=== PATIENT | female | born 1990 | race Caucasian/White ===

== ENCOUNTER 2021-01-17 12:26 | Inpatient (IN) | payer OTHER, SELFPAY ==
[2021-01-17] VITALS (10 sets, daily range): BP systolic 98–113; BP diastolic 63–77; PULSE 74–133; RESP 16–33; TEMP 36.9–37.3; O2SAT 87–100; BMI 18.2; BMI 18.1
--- NOTE | 2021-01-17 12:37 | EKG12_ITS ---
Test Reason : SYNCOPE Blood Pressure : / mmHG Vent. Rate : 083 BPM Atrial Rate : 083 BPM P-R Int : 192 ms QRS Dur : 098 ms QT Int : 400 ms P-R-T Axes : 079 000 060 degrees QTc Int : 470 ms Normal sinus rhythm Normal ECG Confirmed by EDWIN GARZA, PETEY ([id number]), story editor KAJAL CAMPBELL ([id number]) on 01/19/2021 2:21:28 PM Referred By: TL Confirmed By:PETEY PINEDA MD
--- NOTE | 2021-01-17 12:37 | CT_ITS ---
HISTORY: Syncope. TECHNIQUE: Multiple axial images were obtained of the brain without intravenous contrast. A radiation dose optimization technique was used for this scan. # of images incl. paperwork: 232. COMPARISON: None. FINDINGS: BRAIN PARENCHYMA: No significant attenuation abnormality in the brain parenchyma. INTRACRANIAL HEMORRHAGE: No acute intracranial hemorrhage. CSF SPACES/MASS EFFECT: Cerebral ventricles, cortical sulci, and other extra-axial CSF spaces appropriate for age without significant midline shift or mass effect. CALVARIUM: Intact. PARANASAL SINUSES/MASTOID AIR CELLS: Clear. CT/Brain/Head without Contrast IMPRESSION: No acute intracranial process identified. Individualized dose optimization techniques were used for this CT. at 1331 Reported and signed by: Idalmis Luna MD Electronically Signed: Idalmis Luna MD at 13:30 EDT Tel , Service support ,
--- NOTE | 2021-01-17 12:39 | ED.RN ---
NO OLD EKGS
[2021-01-17] MEDS: 0.9% Normal Saline 1,000 ML 1000 ML IV ×2 (12:49→13:59)
[2021-01-17] MEDS: LORazepam 2 MG/ML Syringe 1 MG IV (12:50)
--- NOTE | 2021-01-17 12:50 | NURSING ---
NO OLD EKGS
--- NOTE | 2021-01-17 12:50 | ED.RN ---
PT WAS GETTING AN EKG DONE, THIS RN WAS AT THE COMPUTER DOCUMENTING IN THE ROOM. PT YELLED OUT, TENSED UP AND STARTED TO SEIZE. THIS RN CALLED FOR HELP AND DR PUENTES AT BEDSIDE. SEIZURE LASTED APPROX 2 MINUTES. VERBAL ORDER FOR ATIVAN GIVEN.
[2021-01-17] MEDS: levETIRAcetam IV 1,000 MG/100 ML BAG 400 MG IV (13:06)
[2021-01-17 13:07] LABS: Absolute Lymphocyte Count 1.73 X10^3/uL (0.83-4.51); Absolute Neutrophil Count 3.4 X10^3/uL (2.0-7.7); Basophil# 0.05 X10^3/uL; Basophil% 0.9 % (0-1); Eosinophil# 0.12 X10^3/uL; Eosinophils% 2.1 % (0-5); Hematocrit 36.7 % (37-47); Hemoglobin 11.8 g/dL (12.0-15.0); Lymphocyte # 1.73 X10^3/ul (0.83-4.51); Lymphocyte % 29.7 % (19-41); Mean Corp Hgb Conc 32.2 g/dL (32-36); Mean Corpuscular Hgb 28.8 pg (27.0-32.0); Mean Corpuscular Volume 89.5 fL (81-99); Mean Platelet Vol. 8.9 fl (6.2-12.0); Monocyte% 8.6 % (0-10); NRBC Flagged by Analyzer 0 % (0-5); Neutrophil # 3.39 X10^3/uL (2.7-7.7); Neutrophil % 58.2 % (47-70); Platelet Count 283 K/mm3 (150-450); RBC Distribution Width SD 39.7 fl (35.1-43.9); White Blood Count 5.8 K/mm3 (4.4-11.0)
[2021-01-17 13:19] LABS: Anion Gap 8 (5-15); BUN 10 mg/dL (7-18); BUN/Creat Ratio 16.3 RATIO (10-20); Calcium,Total 7.9 mg/dL (8.5-10.1); Chloride 107 mmol/L (98-107); Creatinine, Serum 0.62 mg/dL (0.55-1.02); EST Glomerular Filtration Rate 121 mL/min (>60); Est Glom Filt Rate - Afr Amer 146 mL/min (>60); Estimated Creatinine Clearance 107.24 ml/min; Glucose 88 mg/dL (74-106); Potassium 3.8 mmol/L (3.5-5.1); Sodium Level 139 mmol/L (136-145); Troponin-I HS 3.5 pg/mL (3.0-53.7)
--- NOTE | 2021-01-17 13:19 | RAD_ITS ---
HISTORY: Syncope. TECHNIQUE: XR Chest 1 View. # of images incl. paperwork: 1. COMPARISON: None. FINDINGS: CARDIOMEDIASTINAL STRUCTURES: Cardiac silhouette not enlarged. Mediastinal contour unremarkable. LUNGS: Radiographically clear. PLEURA: No pleural effusion or pneumothorax. OSSEOUS STRUCTURES: Unremarkable. RAD/Chest 1 View (Portable) IMPRESSION: No radiographic evidence of acute cardiopulmonary disease. at 1349 Reported and signed by: Idalmis Luna MD Electronically Signed: Idalmis Luna MD at 13:48 EDT Tel , Service support ,
--- NOTE | 2021-01-17 13:21 | EX.ED.DYSGE1 ---
HPI History of Present Illness Chief Complaint: Alt LOC Narrative Narrative: Patient presenting for evaluation secondary to altered level of consciousness. History was obtained through the patient's as well as the patient herself. Apparently the patient was fixing dinner, went outside to go to the ice box and had an episode where she lost consciousness. Patient states that she does not remember any sort of preceding event, denies any chest pain shortness of breath lightheadedness or palpitations. Patient simply woke up on the ground. states that he was present by her side after maybe about 2 minutes of her being outside, and denied that she had any sort of shaking type episodes but was somewhat difficult to arouse. Patient was brought immediately to the emergency department. There is no personal or family history of cardiac disease sudden cardiac or heart arrhythmias. 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 PFSH PFSH Home Medications NK 01/17/21 [History Last Taken Unknown] Allergy/AdvReac Type Severity Reaction Status Date / Time No Known Allergies Allergy Verified 01/17/21 12:37 Social History Smoking Status: Never smoker ROS ROS ED Constitutional Constitutional ED: Reports other Details: Altered LOC ENT ENT ED: Denies rhinorrhea Cardiovascular Cardiovascular: Denies chest pain Respiratory/Chest Respiratory/Chest: Denies cough or dyspnea Gastrointestinal Gastrointestinal: Denies abdominal pain, diarrhea, nausea or vomiting Genitourinary Genitourinary ED: Denies dysuria or hematuria Musculoskeletal Musculoskeletal: Denies back pain Integumentary Denies rash Neurologic Neurologic: Denies paresthesias or weakness Psychiatric Psychiatric: Denies depression Endocrine Endocrinology: Denies fatigue Allergic/Immunologic Allergic/Immunologic ED: Denies urticaria EXAM Physical Exam Const Vital Signs: 01/17/21 12:27 01/17/21 12:37 01/17/21 12:52 Temperature 98.4 F Temperature Source Oral Pulse Rate 74 133 H Respiratory Rate 16 33 H Respiratory Effort Normal Non-Labored Respiratory Pattern Normal Blood Pressure 110/68 106/69 Blood Pressure Mean 82 81 Pulse Ox 100 87 Oxygen Delivery Method Room Air Room Air 01/17/21 12:55 01/17/21 13:00 Temperature Temperature Source Pulse Rate 94 102 H Respiratory Rate 19 H 17 Respiratory Effort Respiratory Pattern Blood Pressure 103/63 110/68 Blood Pressure Mean 76 82 Pulse Ox 97 98 Oxygen Delivery Method Room Air Room Air Positive well nourished and well developed Constitutional Narrative: Thin [place] female with a very flat affect no acute distress General Appearance ED: well developed and NAD HEENT Reports moist mucous membranes HEENT Narrative: No evidence of tongue biting Negative for trauma or tenderness Eyes EOMs intact bilaterally Neck no lymphadenopathy, supple and no JVD Chest Wall inspection of chest normal Resp normal respiratory effort and clear to auscultation bilaterally Cardio regular rate, regular rhythm, no murmurs and peripheral pulses 2+ throughout GI normal to inspection, nondistended, normoactive bowel sounds, non-tender and no masses Palpation: soft Back/Spine normal to inspection Extremity normal to inspection General Extremety ED: Negative for tenderness Neuro oriented x3 and no sensory deficits noted Sensorium / Orientation: alert Motor Exam: strength 5/5 throughout Psych mental status grossly normal Skin no rashes or lesions noted MDM MDM MDM Narrative Medical decision making narrative: Patient presented secondary to an undifferentiated altered mental status. Work-up was initiated, shortly after initiating the patient's work-up the patient had a full body tonic-clonic seizure with a postictal episode. Patient was given a milligram of Ativan and was loaded with 1000 mg of Keppra. Repeat evaluation of the patient at 1315 shows her to have continued postictal lethargy but she arouses to voice and is responsive and will follow commands. Patient had continued improvement of her mental status on multiple repeat evaluations she did not have any evidence of electrolyte derangements her lactic acid was elevated consistent with her seizure. Chest x-ray by my personal review shows no pathology. Patient remained stable, I believe she requires admission. I discussed this with hospitalist. Lab Data Labs: Laboratory Results - last 24 hr 01/17/21 01/17/21 01/17/21 12:45 12:45 12:45 WBC 5.8 RBC 4.10 L Hgb 11.8 L Hct 36.7 L MCV 89.5 MCH 28.8 MCHC 32.2 RDW Std Deviation 39.7 RDW Coeff of Thai 12.0 Plt Count 283 MPV 8.9 Immature Gran % (Auto) 0.500 Neut % (Auto) 58.2 Lymph % (Auto) 29.7 [place] % (Auto) 8.6 Eos % (Auto) 2.1 Baso % (Auto) 0.9 Absolute Neuts (auto) 3.4 Absolute Lymphs (auto) 1.73 Nucleated RBC % 0 Sodium 139 Potassium 3.8 Chloride 107 Carbon Dioxide 24.0 Anion Gap 8 BUN 10 Creatinine 0.62 Estim Creat Clear Calc 107.24 Est GFR (MDRD) Af Amer 146 Est GFR (MDRD) Non-Af 121 BUN/Creatinine Ratio 16.3 Glucose 88 Lactic Acid Calcium 7.9 L Troponin I High Sens 3.5 Serum , Qual NEGATIVE 01/17/21 13:08 WBC RBC Hgb Hct MCV MCH MCHC RDW Std Deviation RDW Coeff of Thai Plt Count MPV Immature Gran % (Auto) Neut % (Auto) Lymph % (Auto) [place] % (Auto) Eos % (Auto) Baso % (Auto) Absolute Neuts (auto) Absolute Lymphs (auto) Nucleated RBC % Sodium Potassium Chloride Carbon Dioxide Anion Gap BUN Creatinine Estim Creat Clear Calc Est GFR (MDRD) Af Amer Est GFR (MDRD) Non-Af BUN/Creatinine Ratio Glucose Lactic Acid 7.3 H* Calcium Troponin I High Sens Serum , Qual Radiography Chest X-Ray - ED: 1 View, Read by ED Physician and Normal Diagnostic Testing: Radiology Impression Brain CT 01/17/21 12:37 IMPRESSION: No acute intracranial process identified. Individualized dose optimization techniques were used for this CT. at 1331 Reported and signed by: Idalmis Luna MD Electronically Signed: Idalmis Luna MD at 13:30 EDT Tel , Service support , Chest X-Ray 01/17/21 13:19 IMPRESSION: No radiographic evidence of acute cardiopulmonary disease. at 1349 Reported and signed by: Idalmis Luna MD Electronically Signed: Idalmis Luna MD at 13:48 EDT Tel , Service support , EKG Initial EKG: Attestation: I personally reviewed and interpreted this EKG as follows: (Sinus rhythm of [address] segments normal T waves normal OK and QTc intervals no evidence of WPW or Brugada morphology.) Critical Care Time Critical care time (excluding procedures): 30-74 minutes, Discussing w/Patient &/or Family/Foster Parent, Discussing w/Consultants, Arranging Admission or Transfer and Performing Direct Patient Care at Bedside Discharge Plan Triage Chief Complaint: Alt LOC ED Provider: Faisal Morataya Dx/Rx/DC Orders Clinical Impression: Seizure Prescriptions: No Action NK RF: 0 Primary Care Provider: Keith Madison Referrals: Keith Madison DO [Primary Care Provider] - Disposition Disposition: Acute Care [facility]
[2021-01-17 13:25] LABS: Internal QC Validated? YES +Cl - CLEAR BKGD; Pregnancy, Serum, hCG Quali. NEGATIVE Negative
[2021-01-17 13:42] LABS: Lactic Acid 7.3 mmol/L (0.4-1.9)
--- NOTE | 2021-01-17 14:02 | NURSING ---
DR BOYD FOR DR MARK
--- NOTE | 2021-01-17 14:03 | NURSING ---
PCU OBS SEIZURE TERELETSKY
--- NOTE | 2021-01-17 14:22 | PCM.HP.STD ---
Documented by User: Lindy Christensen NP, EARLY INTERVENTION SPECIALIST-C 01/17/21 14:31 HPI - General General Date of Admission: 01/17/21 Date of Service: 01/17/21 Chief Complaint: Seizure HPI Narrative MANJIT RIOS, is a 30 F who presents to the Emergency Room due to seizure. at bedside states he found patient on the ground today and she was difficult to arouse. states after a few minutes patient regained consciousness. He denies any seizure activity however thinks he found her at the tail end of it. He did witness an additional seizure in the emergency room. Patient reports a history of absence seizures as a child and states she has not had any recurrent seizures for the past 10 to 15 years. She does not follow with neurology. She denies any recent illness, fever, new medications. She states she has been getting less sleep lately. Otherwise, denies recent atypical symptoms. She denies other past medical history. [facility] Medical History (Updated 01/17/21 @ 14:26 by Lindy Christensen NP, EARLY INTERVENTION SPECIALIST-C) Seizure Home Medications NK 01/17/21 [History Last Taken Unknown] Allergy/AdvReac Type Severity Reaction Status Date / Time No Known Allergies Allergy Verified 01/17/21 12:37 other (Denies known paternal and maternal medical history including cardiac history.) Surgical History (Updated 01/17/21 @ 14:27 by Lindy Christensen NP, EARLY INTERVENTION SPECIALIST-C) Previous section Social History (Updated 01/17/21 @ 14:27 by Lindy Christensen NP, EARLY INTERVENTION SPECIALIST-C) household members: significant other and children Smoking Status: Never smoker alcohol intake: never substance use type: does not use ROS Constitutional Constitutional: Reports fatigue; Denies change in weight, chills, fever(s) or weakness Cardiovascular Cardiovascular: Denies chest pain, edema, lightheadedness, palpitations or syncope Respiratory/Chest Respiratory/Chest: Denies cough, dyspnea, productive cough, shortness of breath at rest, shortness of breath with exertion or wheezing Gastrointestinal Gastrointestinal: Denies abdominal pain, constipation, diarrhea, nausea or vomiting Genitourinary Genitourinary: Denies burning urination, difficulty urinating, dysuria, hematuria, urinary frequency, urinary incontinence or urinary urgency Musculoskeletal Musculoskeletal: Denies back pain, joint pain or muscle weakness Integumentary Integumentary: Denies erythema, lesions, rash or wounds Neurologic Neurologic: Reports seizure-like activity; Denies abnormal speech, confusion, dizziness, focal weakness, numbness, paresthesias or syncope Psychiatric Psychiatric: Denies anxiety or depression Hematologic/Lymphatic Hematologic/Lymphatic: Denies anemia, easy bleeding or easy bruising Allergic/Immunologic Allergic/Immunologic: Denies hives or asthma Vital Signs Vital Signs Vital Signs: 01/17/21 12:27 01/17/21 12:37 01/17/21 12:52 Temperature 98.4 F Temperature Source Oral Pulse Rate 74 133 H Respiratory Rate 16 33 H Respiratory Effort Normal Non-Labored Respiratory Pattern Normal Blood Pressure 110/68 106/69 Blood Pressure Mean 82 81 Pulse Ox 100 87 Oxygen Delivery Method Room Air Room Air 01/17/21 12:55 01/17/21 13:00 01/17/21 14:00 Temperature 98.4 F Temperature Source Oral Pulse Rate 94 102 H 88 Respiratory Rate 19 H 17 24 H Respiratory Effort Respiratory Pattern Blood Pressure 103/63 110/68 113/76 Blood Pressure Mean 76 82 88 Pulse Ox 97 98 99 Oxygen Delivery Method Room Air Room Air Room Air Weight Weight: 112 lb 14.027 oz Body Mass Index (BMI) 18.2 Physical Exam Const alert, oriented x3 and no apparent distress Orientation / Consciousness: awake, oriented to person, oriented to place and oriented to time HEENT normocephalic and moist oral mucous membranes Eyes PERRL, EOMs intact bilaterally and conjunctivae normal Neck no lymphadenopathy Resp normal respiratory effort and clear to auscultation bilaterally Cardio regular rate, regular rhythm and no murmurs Peripheral Pulses: pulses 2+ throughout GI normal to inspection, nondistended, normoactive bowel sounds, non-tender and non-distended Extremity normal to inspection Skin no rashes or lesions noted Lesions: no lesions Rashes: no rashes Trauma: no lacerations or abrasions Neuro CN's II-XII intact bilaterally, no focal motor deficits, no sensory deficits noted and deep tendon reflexes 2+ bilaterally Psych mental status grossly normal and affect normal Results Lab / Micro Data Result Diagrams: 01/17/21 12:45 01/17/21 12:45 Labs: Laboratory Results - last 24 hr 01/17/21 12:45: WBC 5.8, RBC 4.10 L, Hgb 11.8 L, Hct 36.7 L, MCV 89.5, MCH 28.8, MCHC 32.2, RDW Std Deviation 39.7, RDW Coeff of Thai 12.0, Plt Count 283, MPV 8.9, Immature Gran % (Auto) 0.500, Neut % (Auto) 58.2, Lymph % (Auto) 29.7, [place] % (Auto) 8.6, Eos % (Auto) 2.1, Baso % (Auto) 0.9, Absolute Neuts (auto) 3.4, Absolute Lymphs (auto) 1.73, Nucleated RBC % 0 01/17/21 12:45: Sodium 139, Potassium 3.8, Chloride 107, Carbon Dioxide 24.0, Anion Gap 8, BUN 10, Creatinine 0.62, Estim Creat Clear Calc 107.24, Est GFR (MDRD) Af Amer 146, Est GFR (MDRD) Non-Af 121, BUN/Creatinine Ratio 16.3, Glucose 88, Calcium 7.9 L, Troponin I High Sens 3.5 01/17/21 12:45: Serum , Qual NEGATIVE 01/17/21 13:08: Lactic Acid 7.3 H* Radiology Impression Brain CT 01/17/21 12:37 IMPRESSION: No acute intracranial process identified. Individualized dose optimization techniques were used for this CT. at 1331 Reported and signed by: Idalmis Luna MD Electronically Signed: Idalmis Luna MD at 13:30 EDT Tel , Service support , Chest X-Ray 01/17/21 13:19 IMPRESSION: No radiographic evidence of acute cardiopulmonary disease. at 1349 Reported and signed by: Idalmis Luna MD Electronically Signed: Idalmis Luna MD at 13:48 EDT Tel , Service support , Assessment & Plan Assessment/Plan (1) Seizure: PLAN: 1. Acute seizure-IV Keppra, as needed IV Ativan. Seizure precautions. Obtain EEG. Obtain SOC neurology consult. Lab work unremarkable with the exception of elevated lactic acid. 2. Lactic acidosis-secondary to above. DVT prophylaxis-low risk, not indicated This patient was seen by Lindy Christensen NP-C under the supervision of Dr. Mccullough. Documented by User: Dr. Michel Mccullough, 01/17/21 17:05 HPI - General General Date of Admission: 01/17/21 [facility] Medical History (Updated 01/17/21 @ 14:26 by Lindy Christensen NP, EARLY INTERVENTION SPECIALIST-C) Seizure Home Medications NK 01/17/21 [History Last Taken Unknown] Allergy/AdvReac Type Severity Reaction Status Date / Time No Known Allergies Allergy Verified 01/17/21 12:37 Surgical History (Updated 01/17/21 @ 14:27 by Lindy Christensen NP, EARLY INTERVENTION SPECIALIST-C) Previous section Social History (Updated 01/17/21 @ 14:27 by Lindy Christensen NP, EARLY INTERVENTION SPECIALIST-C) household members: significant other and children Smoking Status: Never smoker alcohol intake: never substance use type: does not use Results Lab / Micro Data Result Diagrams: 01/17/21 12:45 01/17/21 12:45 Charges/Coding Addendum Addendum: Patient was seen and examined independently of Lindy Christensen today, she came to the ER after being found outside her home by her and her mental status was not correct, she appeared lethargic and somnolent. Patient was brought into the ER shortly after arrival in the ER, ER staff witnessed the patient having a tonic-clonic seizure. Patient had a past history of seizure disorder and was taken off of seizure medications approximately 7 years ago. According to the patient, her last history of seizure was approximately 15 years ago. On examination she appeared in good health and spirits, she does not appear to be in any distress. Vital signs as documented. Skin warm and dry and without overt rashes. Neck without JVD, thyroid appears normal, trachea is midline, neck is supple. Lungs clear, normal air movement was noted. Heart exam notable for regular rhythm, normal sounds and absence of murmurs, rubs or gallops. Abdomen unremarkable and without evidence of organomegaly, masses, or abdominal aortic enlargement, bowel sounds are present in all 4 quadrants, no abdominal tenderness was noted. Extremities nonedematous, no cyanosis was noted, no clubbing was noted. Neuro: Cranial nerves II through XII are grossly intact, no focal motor deficits were noted, sensation to light touch and pinprick is intact, motor exam 5/5 throughout. Psych: Patient is alert and oriented x3, she does not appear anxious or depressed, she does not appear agitated. I talked at length with the patient's today, due to the fact that she has had a previous diagnosis of a seizure disorder I gave him the option of not having teleneurology see the patient-I explained to him that she would not be following up with the same teleneurologist as an outpatient, he stated that he preferred to forego a formal consult from the teleneurologist at instead just have the patient have an EEG performed. I told him that if the patient's condition change during her hospitalization, we could have teleneurology see the patient and he was okay with this. Patient had seen a neurologist at [facility] years ago in [facility] but had not been back for follow-up appointments. Patient will be kept on IV Keppra during her hospitalization. EEG will probably be performed tomorrow. I have reviewed Lindy Christensen's history and physical including her medical assessment and plan of care and endorse it. Visit Charges OBSV E&M: [id number] Initial observation care L3
[2021-01-17 15:16] LABS: Troponin-I HS 6.5 pg/mL (3.0-53.7)
--- NOTE | 2021-01-17 15:22 | TELEMED_ITS ---
SOC Telemed has confirmed receipt of a request for visit. This document confirms receipt of the order initiating the consult. To find the results of the consultation, please view the patient's reports for the scanned Telemed Consult.
[2021-01-17] MEDS: Ondansetron 4 MG/2 ML Vial IV (16:03)
[2021-01-17] MEDS: 0.9% Saline Lock 10 ML Syringe IV ×2 (16:03→21:40)
[2021-01-17 17:13] LABS: Reflex Lactate? Y
--- NOTE | 2021-01-17 17:30 | CM.ED ---
SW Note SW Referral Source: Supervisor Coal Handling SW Referral Reason: Provide emotional support to SW was contacted by Velia, dental secretary/online community manager that patient's was upset and would benefit from support. SW spoke to , Albino. He indicated he was present when patient had a seizure. He indicated that seeing her have a seizure was very upsetting to him. Albino called family for support. SW repeatedly checked in with Albino during the day and provided emotional support. SW remains available if additional needs arise. Plan: To be determined Cece COLON
--- NOTE | 2021-01-17 22:17 | CASEMGMT ---
LORI Note SW went to room to follow up with patient's , Albino. He indicated his parents had not come to the ED but had called. He inquired if he could stay the night in the [facility]. RN called Hospital Scale Model Maker who referred patient to security. SW called Security and security, Erick, indicated he would need to speak to Hospital administer. Erick from security called back and said that it was fine if patient's stayed in the [facility]. SW updated patient and he said that if he was not able to come visit with patient till 10am he may go home overnight. SW helped secure contact number for [facility] commercial collections driver. Patient said that he would attempt to contact commercial collections driver to go home but if he didn't he would stay in [facility]. LORI called conveyor line battery charger Taya. Patient's had gone home for the night. LORI called Security Erick and advised that patient's had gone home. Cece COLON
[2021-01-18 02:55] VITALS: BP 92/61; PULSE 56; RESP 18; TEMP 36.9; O2SAT 99
[2021-01-18 03:00] VITALS: PULSE 53
[2021-01-18 07:02] VITALS: PULSE 62
[2021-01-18 08:30] VITALS: BP 95/66; PULSE 61; RESP 18; TEMP 36.9; O2SAT 97
[2021-01-18] MEDS: 0.9% Saline Lock 10 ML Syringe IV ×2 (10:50→10:55)
--- NOTE | 2021-01-18 11:58 | PCM.DC ---
Discharge Instructions Diet Discharge Diet: No restrictions Activity Discharge Activity: Return to Normal Activity Dressing / Incision Call your doctor if you observe: Shortness of breath, Dizziness and Chest pain Follow Up Care Test Results: Test results from this visit will be discussed in further detail at your follow-up appointment, if applicable. Discharge Plan Admission Admit Date/Time: 01/17/21 14:15 Primary Reason for Your Visit: Seizure Attending Provider: Michel Mccullough Primary Care Provider: Keith Madison Instructions Additional Instructions / Restrictions: Patient Problems: Altered Health Status related to Hospitalization Patient Goals: *Optimal Level of Health *Keep Appointments *Medication Compliance *Remain Safe Discharge Orders/Prescriptions Prescriptions: New levetiracetam [Keppra] 500 mg tablet 500 mg PO BID Qty: 120 RF: 1 Referrals / Follow Up: Corie, Toy [Other] - In 1 Week (Call for follow up ) Keith Madison DO [Primary Care Provider] - In 1 Week Disposition Disposition (needs filled in before D/C Order can be placed): Home, Self Care
--- NOTE | 2021-01-18 13:33 | DS.PCM_ITS ---
Documented by User: Lindy Christensen NP, [employer] 01/18/21 13:37 Providers Date of Admission: 01/17/21 Date of Discharge: 01/18/21 Primary Care Physician: Dr. Keith Madison DO Reason For Visit: SEIZURE Diagnosis Discharge Diagnosis (1) Seizure: Status: Acute Code(s): R56.9 - Unspecified convulsions Medications at Discharge Home Medications levetiracetam [Keppra] 500 mg PO BID #120 tab 01/18/21 Hospital Course Operations None Procedures Electroencephalogram Summary of Care Provided Minutes Spent on Discharge: 35 Hospital Course: Patient is a 30-year-old female admitted 01/17/2021 due to a seizure. 1. Acute seizure-IV Keppra during admission. EEG negative for seizure activity. Lab work unremarkable with exception of elevated lactic acid. 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 Initiated on oral Keppra 500 mg twice daily with plans to increase dose in 2 weeks. Follow-up with PCP and neurology in 1 week. No further seizure activity during admission. 2. Lactic acidosis-secondary to above. Physical Exam Const alert, oriented x3 and no apparent distress Orientation / Consciousness: awake, oriented to person, oriented to place and oriented to time HEENT normocephalic and moist oral mucous membranes Eyes PERRL, EOMs intact bilaterally and conjunctivae normal Neck no lymphadenopathy Resp normal respiratory effort and clear to auscultation bilaterally Cardio regular rate, regular rhythm and no murmurs Peripheral Pulses: pulses 2+ throughout GI normal to inspection, nondistended, normoactive bowel sounds, non-tender and non-distended Extremity normal to inspection Skin no rashes or lesions noted Lesions: no lesions Rashes: no rashes Trauma: no lacerations or abrasions Neuro CN's II-XII intact bilaterally, no focal motor deficits, no sensory deficits noted and deep tendon reflexes 2+ bilaterally Psych mental status grossly normal and affect normal Patient seen and examined prior to discharge. Physical assessment as noted above. Patient is stable for discharge with follow up recommendations as noted above. This patient was seen by JANEE StaleyC under the supervision of Dr. Mccullough. Weight / BMI Weight Weight: 116 lb 2.938 oz Body Mass Index (BMI) 18.1 ABG / Lab / Microbiology Data Result Diagrams: 01/17/21 12:45 01/17/21 12:45 Laboratory: Laboratory Results - last 24 hr 01/17/21 13:08: Lactic Acid 7.3 H* 01/17/21 14:48: Troponin I High Sens 6.5 Radiography Diagnostic Testing: Radiology Impression Chest X-Ray 01/17/21 13:19 IMPRESSION: No radiographic evidence of acute cardiopulmonary disease. at 1349 Reported and signed by: Idalmis Luna MD Electronically Signed: Idalmis Luna MD at 13:48 EDT Tel , Service support , D/C Instructions Discharge Diet: No restrictions Call your doctor if you observe: Shortness of breath, Dizziness and Chest pain Meaningful Use Info Meaningful Use Diagnoses (Choose all that apply): None applicable Discharge Plan Admission Admit Date/Time: 01/17/21 14:15 Primary Reason for Your Visit: Seizure Attending Provider: Michel Mccullough Primary Care Provider: Keith Madison Instructions Additional Instructions / Restrictions: Patient Problems: Altered Health Status related to Hospitalization Patient Goals: *Optimal Level of Health *Keep Appointments *Medication Compliance *Remain SafePatient Problems: Altered Health Status related to Hospitalization Patient Goals: *Optimal Level of Health *Keep Appointments *Medication Compliance *Remain Safe Discharge Orders/Prescriptions Prescriptions: New levetiracetam [Keppra] 500 mg tablet 500 mg PO BID Qty: 120 RF: 1 Referrals / Follow Up: [facility] [Other] - In 1 Week (Call for follow up ) Keith Madison DO [Primary Care Provider] - In 1 Week Disposition Disposition (needs filled in before D/C Order can be placed): Home, Self Care Documented by User: Dr. Michel Mccullough DO 01/18/21 14:05 Providers Date of Admission: 01/17/21 Reason For Visit: SEIZURE Medications at Discharge Home Medications levetiracetam [Keppra] 500 mg PO BID #120 tab 01/18/21 ABG / Lab / Microbiology Data Result Diagrams: 01/17/21 12:45 01/17/21 12:45 Discharge Plan Admission Admit Date/Time: 01/17/21 14:15 Primary Reason for Your Visit: Seizure Attending Provider: Michel Mccullough Primary Care Provider: Keith Madison Instructions Additional Instructions / Restrictions: Patient Problems: Altered Health Status related to Hospitalization Patient Goals: *Optimal Level of Health *Keep Appointments *Medication Compliance *Remain SafePatient Problems: Altered Health Status related to Hospitalization Patient Goals: *Optimal Level of Health *Keep Appointments *Medication Compliance *Remain Safe Discharge Orders/Prescriptions Prescriptions: New levetiracetam [Keppra] 500 mg tablet 500 mg PO BID Qty: 120 RF: 1 Referrals / Follow Up: [facility] [Other] - In 1 Week (Call for follow up ) Keith Madison DO [Primary Care Provider] - In 1 Week Disposition Disposition (needs filled in before D/C Order can be placed): Home, Self Care Charges/Coding Addendum Addendum: Patient was seen and examined today, EEG was performed which did not show any epileptic focus, there was only diffuse brainwave slowing indicative of possible encephalopathy. Patient is alert and appropriate today, I talked with her and her who was in the room at the time of my examination. I have decided to have the patient remain on Keppra at this time until she sees neurology for further guidance. On examination she appeared in good health and spirits, she does not appear to be in any distress. Vital signs as documented. Skin warm and dry and without overt rashes. Neck without JVD, thyroid appears normal, trachea is midline, neck is supple. Lungs clear, normal air movement was noted. Heart exam notable for regular rhythm, normal sounds and absence of murmurs, rubs or gallops. Abdomen unremarkable and without evidence of organomegaly, masses, or abdominal aortic enlargement, bowel sounds are present in all 4 quadrants, no abdominal tenderness was noted. Extremities nonedematous, no cyanosis was noted, no clubb ing was noted. Neuro: Cranial nerves II through XII are grossly intact, no focal motor deficits were noted, sensation to light touch and pinprick is intact, motor exam 5/5 throughout. Psych: Patient is alert and oriented x3, she does not appear anxious or depressed, she does not appear agitated. Patient appears stable for discharge at this time, I have reviewed Lindy Christensen's discharge summary including her medical assessment and plan of care and endorse it. Visit Charges Inpatient E&M: [id number] Disch Hosp
== END 2021-01-18 14:40 | disposition home or self-care (01) | DRG 101 ==
LOC: ED 14:02 → PCU 21:04
PROVIDERS: Admitting Provider Internal Medicine; Emergency Provider Emergency Medicine; PCP Family Medicine; Visit Provider Internal Medicine
DX: R56.9 Unspecified convulsions (principal); E87.2 Acidosis
CPT/HCPCS: 70450; 71045; 80048; 83605; 84484; 84703; 85025; 93005; 95819; 99285; J7030; J7050; A4216; J2405

== ENCOUNTER 2022-03-27 13:37 | Emergency (ER) | payer OTHER, SELFPAY ==
[2022-03-27 13:38] VITALS: BP 122/84; PULSE 112; RESP 20; TEMP 37.1; O2SAT 99; BMI 17.4
--- NOTE | 2022-03-27 13:44 | EKG12_ITS ---
Test Reason : SEIZURE Blood Pressure : / mmHG Vent. Rate : 109 BPM Atrial Rate : 109 BPM P-R Int : 180 ms QRS Dur : 098 ms QT Int : 358 ms P-R-T Axes : 069 001 044 degrees QTc Int : 482 ms Sinus tachycardia with Fusion complexes Otherwise normal ECG Confirmed by RYAN GARZA, MONIQUE ([id number]), videotape editor KAJAL CAMPBELL ([id number]) on 03/31/2022 9:19:10 AM Referred By: Confirmed By:MONIQUE DAVIS MD
--- NOTE | 2022-03-27 13:45 | CT_ITS ---
STUDY: CT CERVICAL SPINE WITHOUT CONTRAST REASON FOR EXAM: Female, 32 years old. Trauma RADIATION DOSAGE (If Supplied By Facility): CTDIvol = ( 13.60 ) mGy, DLP = ( 289.57 ) mGycm TECHNIQUE: High resolution transaxial imaging was performed without contrast material. Sagittal and coronal images were reconstructed. Individualized dose optimization techniques were used for this CT. COMPARISON: None FINDINGS: Normal craniovertebral junction. Normal anterior atlantoaxial articulation. Normal odontoid process. There is straightening of the normal cervical lordosis. Normal vertebral bodies and posterior osseous elements. C2-3: Normal endplates. Normal disc height and morphology. Normal central canal and intervertebral neuroforamina. C3-4: Normal endplates. Normal disc height and morphology. Normal central canal and intervertebral neuroforamina. C4-5: Normal endplates. Normal disc height and morphology. Normal central canal and intervertebral neuroforamina. C5-6: Normal endplates. Normal disc height and morphology. Normal central canal and intervertebral neuroforamina. C6-7: Normal endplates. Normal disc height and morphology. Normal central canal and intervertebral neuroforamina. C7-T1: Normal endplates. Normal disc height and morphology. Normal central canal and intervertebral neuroforamina. Normal visualized soft tissue structures. CT/Spine Cervical without Contras IMPRESSION: Normal unenhanced CT examination of the cervical spine. Electronically Signed: Andrea Howard MD at 14:20 EDT ,
--- NOTE | 2022-03-27 13:45 | CT_ITS ---
STUDY: CT CHEST, ABDOMEN T PELVIS WITH CONTRAST REASON FOR EXAM: Female, 32 years old. Unresponsive after falling down a flight of stairs RADIATION DOSAGE (If Supplied By Facility): CTDIvol = ( 9.59 ) mGy, DLP = ( 554.59 ) mGycm TECHNIQUE: Transaxial imaging was performed following intravenous administration of IV 100mL Isovue-370. Multiplanar coronal and sagittal images were reformatted. Individualized dose optimization techniques were used for this CT. COMPARISON: No relevant priors. FINDINGS: CHEST The lungs are normal. There is no demonstrated pleural abnormality. Normal heart and pericardium. Normal mediastinum. Normal hilar regions. Normal unenhanced pulmonary arteries. Normal aorta arch and descending thoracic aorta. Normal osseous structures. ABDOMEN Normal liver. Normal gallbladder and extrahepatic biliary system. Normal spleen. Normal pancreas. Normal bilateral adrenal glands. Normal right kidney. Normal left kidney. Normal visualized stomach. Normal small intestine. Normal colon. There is non-visualization of the appendix. Normal abdominal aorta. Normal inferior vena cava. Normal retroperitoneum. Normal abdominal wall. Normal osseous structures. PELVIS Normal urinary bladder. There is no pelvic fluid. There is no pelvic lymphadenopathy or mass lesion. Normal visualized uterus. No suspicious adnexal mass or free fluid Normal visualized pelvic arteries. Normal abdominal wall. Normal osseous structures. CT/CT Chest, Abd, Pel w/Contrast IMPRESSION: No acute pulmonary process, no demonstrated rib, sternal, or vertebral body fracture No suspicious solid organ abnormality No free intraperitoneal fluid, air, or suspicious adenopathy. Electronically Signed: Andrea Howard MD at 14:26 EDT ,
--- NOTE | 2022-03-27 13:45 | CT_ITS ---
STUDY: CT BRAIN WITHOUT CONTRAST REASON FOR EXAM: Female, 32 years old. Headache after trauma RADIATION DOSAGE (If Supplied By Facility): CTDIvol = ( 44.99 ) mGy, DLP = ( 779.24 ) mGycm TECHNIQUE: Transaxial CT imaging of the brain was performed without administration of intravenous contrast material. Individualized dose optimization techniques were used for this CT. COMPARISON: No relevant priors. FINDINGS: Normal soft tissue structures. Normal calvarium. Normal size ventricles and extra-axial spaces for the patient''s age. Normal white matter tracts of the cerebral hemispheres. Normal basal ganglia and thalami. Normal brainstem. Normal cerebellum. There is no intracranial hemorrhage. There are no findings of an acute ischemic infarction. Normal visualized paranasal sinuses. CT/Brain/Head without Contrast IMPRESSION: Normal unenhanced CT scan of the brain. Electronically Signed: Andrea Howard MD at 14:20 EDT ,
[2022-03-27 13:51] VITALS: O2SAT 99
[2022-03-27] MEDS: LORazepam 2 MG/ML Syringe 1 MG IV (13:53)
--- NOTE | 2022-03-27 13:53 | EDS_ITS ---
HPI History of Present Illness Chief Complaint: Seizure Detail of Chief Complaint: Generalized seizure and fell down a flight of steps Informant: spouse/S.O. Onset/Context/Timing Onset: Today and Hours Mechanism/Context: Blunt Injury and Fall Location: Patient has obvious trauma to head and face patient is actively seizing Current Severity: Unable to determine Maximum Severity: Unable to determine Worsened by: Unknown Relieved by: Ativan Associated Symptoms Length of loss of consciousness: Unknown Narrative Narrative: Patient a 32-year-old woman who was brought in after she fell down a flight of steps. She had a seizure. heard a bang. Last seizure was around [place]. He is on certain if she took her seizure medicine this morning. Patient was actively seizing and required Ativan. History is limited to what told me. Tetanus Immunization: Unknown Prior similar symptoms: No Recent Illness/Hospitalization: [facility] Medical History Seizure Home Medications levetiracetam 500 mg tablet (Keppra) 1,000 mg PO BID 03/27/22 [History Last Taken Unknown] levetiracetam 500 mg tablet (Keppra) 500 mg PO BID #60 tabs 03/27/22 [Rx Last Taken Unknown] Allergy/AdvReac Type Severity Reaction Status Date / Time No Known Allergies Allergy Verified 01/17/21 12:37 Surgical History Previous section Social History household members: significant other and children Smoking Status: Never smoker alcohol intake: never substance use type: does not use ROS ROS ED Review of Systems ROS Unobtainable: due to mental status EXAM Physical Exam Const Vital Signs: 03/27/22 13:38 03/27/22 13:51 03/27/22 14:59 Temperature 98.8 F Temperature Source Temporal Pulse Rate 112 H 103 H Respiratory Rate 20 H 19 H Respiratory Effort Normal Non-Labored Respiratory Depth Normal Respiratory Pattern Normal Blood Pressure 122/84 H 98/66 Blood Pressure Mean 96 76 Pulse Ox 99 99 99 Oxygen Delivery Method Room Air Room Air Room Air 03/27/22 15:24 Temperature Temperature Source Pulse Rate 108 H Respiratory Rate 16 Respiratory Effort Respiratory Depth Respiratory Pattern Blood Pressure 98/67 Blood Pressure Mean 77 Pulse Ox 98 Oxygen Delivery Method Room Air Positive well nourished and well developed Constitutional Narrative: Active seizure with evidence of face and head trauma General Appearance ED: well developed HEENT HEENT Narrative: There is no hemotympanum. There is no CSF otorrhea or rhinorrhea. No raccoon or naqvi sign. trauma Nose: Negative for septum abnormal Eyes General Eye ED: Yes other Other Details: Eyes are deviated upwards. Pupils are 4 to 5 mm in diameter. There is no nystagmus. There is no subconjunctival hemorrhage. Conjunctive is pink. Neck Neck Narrative: Unable to assess Chest Wall inspection of chest normal and palpation of chest normal Resp normal respiratory effort and clear to auscultation bilaterally Cardio regular rhythm, S1 normal heart sound, S2 normal heart sound and no murmurs Rate: tachycardic GI normal to inspection, nondistended, normoactive bowel sounds, non-distended and no masses Back/Spine normal to inspection Back/Spine Narrative: Unable to determine if patient has discomfort. Extremity normal to inspection General Extremety ED: Negative for deformity General Extremity: Negative for deformity Neuro No oriented x3 Neuro Narrative: Patient actively seizing Wilder Coma Scale: document GCS findings Plantar Reflex: Upgoing (positive Babinski): bilateral Psych Psych Narrative: Unable to determine Skin Skin Narrative: Submental laceration and contusions to head and face predominantly on the left side PROC Procedures Other Procedures Procedure(s): Patient submental laceration was cleansed and prepped in sterile manner. The wound was anesthetized with 1% lidocaine by local infiltration. A total of 1 cc was infiltrated. The wound was cleansed. Using 6-0 Ethilon 4 simple interrupted sutures were placed. Patient tolerated procedure well. She was discharged home with appropriate home-going instructions. MDM MDM MDM Narrative Medical decision making narrative: With a fall down a flight of steps obvious head and facial trauma patient placed in c-collar. CT of the head neck was obtained. Since the abdomen cannot be victorina luated CT of the abdomen was obtained. Chest x-ray was obtained to rule out obvious rib fractures or pneumothorax. Trauma blood work was obtained. Initially a test was ordered this was canceled since tell me that she has had a hysterectomy. UA was obtained to assess for hematuria and raise concern for renal trauma. Patient did require Ativan. The seizure stopped after Ativan. Since patient now able to communicate alert and oriented she informed me and the nurse that she has not been compliant with her anticonvulsant medicine. She is taking half a tablet daily instead of full tablet daily. She is taking th equivalent of 500 a day instead of the 2 g that she was prescribed. Will load with 70 mg/kg of Keppra. Once she is more alert will suture the chin laceration and clinically clear her C-spine since the CT reveals no abnormality. I was informed by nursing staff that 1450 that patient was in bigeminy. Asked for a rhythm strip to be printed off and EKG was ordered. Patient has converted back to sinus rhythm. She was in bigeminy for 15 to 30 seconds. Patient apparently was not taking her medicines because it made her feel funny. She is on a large dose for someone who only weighs 50 kg. Will decrease the dose. She will follow-up with her doctor to have a blood level obtained in 1 week. Lab Data Attestation: I reviewed the patient's lab results. Lab results narrative: Patient has an anion gap acidosis consistent with seizure. Potassium is 3.2 whi ch is below lower end of normal. Glucose is slightly elevated 132. Labs: Laboratory Results - last 24 hr 03/27/22 03/27/22 03/27/22 13:47 13:47 13:47 WBC 12.1 H RBC 4.27 Hgb 12.6 Hct 39.4 MCV 92.3 MCH 29.5 MCHC 32.0 RDW Std Deviation 41.0 RDW Coeff of Thai 12.1 Plt Count 269 MPV 9.2 Immature Gran % (Auto) 0.200 Neut % (Auto) 43.7 L Lymph % (Auto) 46.3 H Anson % (Auto) 7.9 Eos % (Auto) 1.5 Baso % (Auto) 0.4 Absolute Neuts (auto) 5.3 Absolute Lymphs (auto) 5.59 H Nucleated RBC % 0 Differential Comment SCANNED Reactive Lymphocytes 1+ PT 14.0 INR 1.1 APTT 29.5 Sodium 143 Potassium 3.2 L Chloride 109 H Carbon Dioxide 17.0 L Anion Gap 17 H BUN 14 Creatinine 0.84 Estim Creat Clear Calc 76.96 Est GFR (MDRD) Af Amer 101 Est GFR (MDRD) Non-Af 83 BUN/Creatinine Ratio 16.6 Glucose 132 H Calcium 8.7 Total Bilirubin 0.80 Direct Bilirubin 0.14 AST 12 L ALT 17 Alkaline Phosphatase 52 Total Protein 7.3 Albumin 4.0 Globulin 3.3 Serum , Qual Urine Color Urine Clarity Urine pH Ur Specific [place] Urine Protein Urine Glucose (UA) Urine Ketones Urine Occult Blood Urine Nitrite Urine Bilirubin Urine Urobilinogen Ur Leukocyte Esterase Urine RBC Urine WBC Ur Squamous Epith Cells Urine Bacteria Urine Mucus POC Glucose 03/27/22 03/27/22 03/27/22 13:47 14:06 14:15 WBC RBC Hgb Hct MCV MCH MCHC RDW Std Deviation RDW Coeff of Thai Plt Count MPV Immature Gran % (Auto) Neut % (Auto) Lymph % (Auto) Anson % (Auto) Eos % (Auto) Baso % (Auto) Absolute Neuts (auto) Absolute Lymphs (auto) Nucleated RBC % Differential Comment Reactive Lymphocytes PT INR APTT Sodium Potassium Chloride Carbon Dioxide Anion Gap BUN Creatinine Estim Creat Clear Calc Est GFR (MDRD) Af Amer Est GFR (MDRD) Non-Af BUN/Creatinine Ratio Glucose Calcium Total Bilirubin Direct Bilirubin AST ALT Alkaline Phosphatase Total Protein Albumin Globulin Serum , Qual NEGATIVE Urine Color Straw Urine Clarity Clear Urine pH 6.0 Ur Specific [place] 1.010 Urine Protein Negative Urine Glucose (UA) Normal Urine Ketones 5 H Urine Occult Blood Negative Urine Nitrite Negative Urine Bilirubin Negative Urine Urobilinogen Normal Ur Leukocyte Esterase Negative Urine RBC 0 SEEN Urine WBC 0 SEEN Ur Squamous Epith Cells 0 SEEN Urine Bacteria 0 SEEN Urine Mucus 0 SEEN POC Glucose 115 H Radiography Diagnostic Testing: Clinical Impression(s) from Imaging Studies Brain CT 03/27/22 13:45 IMPRESSION: Normal unenhanced CT scan of the brain. Electronically Signed: Andrea Howard MD at 14:20 EDT , Cervical Spine CT 03/27/22 13:45 IMPRESSION: Normal unenhanced CT examination of the cervical spine. Electronically Signed: Andrea Howard MD at 14:20 EDT , Chest/Abdomen/Pelvis CT 03/27/22 13:45 IMPRESSION: No acute pulmonary process, no demonstrated rib, sternal, or vertebral body fracture No suspicious solid organ abnormality No free intraperitoneal fluid, air, or suspicious adenopathy. Electronically Signed: Andrea Howard MD at 14:26 EDT , Chest X-Ray 03/27/22 14:06 IMPRESSION: Normal x-ray examination of the chest. Electronically Signed: Andrea Howard MD at 14:28 EDT , Single view chest x-ray was normal cardiac silhouette and size. No evidence of pneumothorax or hemothorax. Perihilar regions normal and not widened. There is no evidence of rib fractures. This was independently reviewed and interpreted by me at 1423. 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 Discharge Plan Triage Chief Complaint: Seizure Other Complaint: Head Injury ED Provider: Ashwin Lopez Dx/Rx/DC Orders Clinical Impression: Generalized tonic-clonic seizure, Fall down stairs, Closed head injury with concussion, Contusion of face, scalp and neck, Abrasion, multiple sites, Laceration of chin Instructions: ED Abrasion, ED Concussion, ED Seizure, Recurrent (Adult) Prescriptions: New levetiracetam [Keppra] 500 mg tablet 500 mg PO BID Qty: 60 1RF No Action levetiracetam [Keppra] 500 mg tablet 1,000 mg PO BID Rx Instructions: 500 mg twice daily for 2 weeks, then increase to 1000 mg twice daily. Primary Care Provider: Keith Madison Referrals: Keith Madison DO [Primary Care Provider] - 1 Week Activity Restrictions/Additional Instructions: 1. Clean wound with peroxide on a Q-tip 3 times a day then apply bacitracin ointment. 2. Sutures to be removed in 5 days 3. Your dose was decreased by 50%. Make sure you take your medicine as prescribed. 4. Call on Tuesday to be seen by Dr. Madison to have blood levels checked. Disposition Disposition: Home, Self Care
--- NOTE | 2022-03-27 13:53 | ED.RN ---
PT HAD SEIZURE AT 1340, FULL TONIC CLONIC MOTION OF ARMS AND LEGS LASTING APPROX 2 MIN. 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 15L NON REBREATHER MASK WITH SP02 100%. ATIVAN 1MG IV GIVEN PER DR. WASSERMAN VERBAL ORDER THROUGH LEFT AC IV BY Ubaldo GREWAL RN. DR. WASSERMAN AT BEDSIDE TO EVALUATE PT. PER AND EMS, PT WITH UNWITNESSED FALL DOWN STAIRS. FOUND AT THE BOTTOM OF THE STAIRS. HX OF SEIZURES, LAST SEIZURE WAS JUNE 2021. PT ON KEPPRA.
[2022-03-27 13:59] LABS: Absolute Lymphocyte Count 5.59 X10^3/uL (0.83-4.51); Absolute Neutrophil Count 5.3 X10^3/uL (2.0-7.7); Basophil# 0.05 X10^3/uL; Basophil% 0.4 % (0-1); Eosinophil# 0.18 X10^3/uL; Eosinophils% 1.5 % (0-5); Hematocrit 39.4 % (37-47); Hemoglobin 12.6 g/dL (12.0-15.0); Lymphocyte # 5.59 X10^3/ul (0.83-4.51); Lymphocyte % 46.3 % (19-41); Mean Corpuscular Hgb 29.5 pg (27.0-32.0); Mean Corpuscular Volume 92.3 fL (81-99); Mean Platelet Vol. 9.2 fl (6.2-12.0); Monocyte# 0.95 X10^3/uL; Monocyte% 7.9 % (0-10); NRBC Flagged by Analyzer 0 % (0-5); Neutrophil # 5.27 X10^3/uL (2.7-7.7); Neutrophil % 43.7 % (47-70); POSITIVE DIFFERENTIAL YES; POSITIVE MORPHOLOGY YES; Platelet Count 269 K/mm3 (150-450); RBC Distribution Width CV 12.1 % (11.6-14.6); Red Blood Count 4.27 M/mm3 (4.2-5.4); White Blood Count 12.1 K/mm3 (4.4-11.0)
[2022-03-27 14:03] LABS: Differential Indicated SCAN CRITERIA MET
[2022-03-27 14:06] LABS: Internal QC Validated? YES +Cl - CLEAR BKGD; International Normalized Ratio 1.1; Partial Thromboplast Time 29.5 Seconds (24.1-36.2); Pregnancy, Serum, hCG Quali. NEGATIVE Negative
--- NOTE | 2022-03-27 14:06 | RAD_ITS ---
STUDY: X-RAY CHEST REASON FOR EXAM: Female, 32 years old. Chest pain after trauma TECHNIQUE: Single AP portable view of the chest. COMPARISON: 01/17/2021 FINDINGS: EKG leads overlie the chest The lungs are clear and expanded. There is no demonstrated pleural abnormality. Normal size heart. Normal mediastinum and libia. Normal visualized pulmonary arteries. Normal visualized aortic arch and descending thoracic aorta. Normal visualized thoracic spine. Normal visualized ribs, clavicles, and shoulders. There is no demonstrated abnormality of the visualized soft tissue structures of the upper abdomen. RAD/Chest 1 View (Portable) IMPRESSION: Normal x-ray examination of the chest. Electronically Signed: Andrea Howard MD at 14:28 EDT ,
[2022-03-27 14:15] LABS: AST(SGOT) 12 U/L (15-37); Alanine Aminotransfer ALT/SGPT 17 U/L (13-56); Alkaline Phosphatase 52 U/L (45-117); Anion Gap 17 (5-15); BUN 14 mg/dL (7-18); BUN/Creat Ratio 16.6 RATIO (10-20); Bilirubin, Direct 0.14 mg/dL (0.00-0.30); Calcium,Total 8.7 mg/dL (8.5-10.1); Chloride 109 mmol/L (98-107); Creatinine, Serum 0.84 mg/dL (0.55-1.02); EST Glomerular Filtration Rate 83 mL/min (>60); Est Glom Filt Rate - Afr Amer 101 mL/min (>60); Estimated Creatinine Clearance 76.96 ml/min; Globulin 3.3 g/dL (2.2-4.2); Glucose 132 mg/dL (74-106); Potassium 3.2 mmol/L (3.5-5.1); Protein, Total 7.3 g/dL (6.4-8.2); Sodium Level 143 mmol/L (136-145)
[2022-03-27] MEDS: Diphth,Pertuss(Acell),Tet Vac 0.5 ML Vial IM (14:20)
[2022-03-27 14:25] LABS: Bacteria 0 SEEN /hpf (None Seen); Mucous, Urine 0 SEEN /hpf (<or=2+); Red Blood Cells-Urine 0 SEEN /hpf (0-5); Squamous Epithelial Cells - UA 0 SEEN /hpf (5-10); White Blood Cells 0 SEEN /hpf (0-5)
[2022-03-27 14:27] LABS: Color, Urine Straw (Yellow); Glucose, Dipstick Normal (Normal); Ketone-Dipstick 5 mg/dl (Negative); Leukocyte Esterase-Dipstick Negative /ul (Negative); Nitrite-Dipstick Negative (Negative); Occult Blood-Urine Negative /ul (Negative); Protein-Dipstick Negative (Negative); Urine Bilirubin Dipstick Negative (Negative); Urine Clarity Clear (Clear); Urine Urobilinogen Normal (Normal)
[2022-03-27 14:41] LABS: Bedside Glucose 115 mg/dL (74-106)
[2022-03-27 14:48] LABS: Differential Comment SCANNED; Reactive Lymphocyte 1+
[2022-03-27 14:59] VITALS: BP 98/66; PULSE 103; RESP 19; O2SAT 99
[2022-03-27 15:24] VITALS: BP 98/67; PULSE 108; RESP 16; O2SAT 98
[2022-03-27 15:41] VITALS: RESP 16
[2022-03-27 16:00] VITALS: BP 99/67
[2022-03-27] MEDS: Lidocaine 1% (20 ml mdv) 20 ML Vial INFILT (16:05)
== END 2022-03-27 16:18 | disposition home or self-care (01) ==
PROVIDERS: Emergency Provider Emergency Medicine; PCP Family Medicine; Visit Provider Emergency Medicine
DX: S06.0X0A Concussion without loss of consciousness, initial encounter (principal); G40.409 Other generalized epilepsy and epileptic syndromes, not intractable, without status epilepticus; W10.9XXA Fall (on) (from) unspecified stairs and steps, initial encounter; S00.83XA Contusion of other part of head, initial encounter; S00.03XA Contusion of scalp, initial encounter; S10.83XA Contusion of other specified part of neck, initial encounter; S01.81XA Laceration without foreign body of other part of head, initial encounter; I49.49 Other premature depolarization; Z79.899 Other long term (current) drug therapy
CPT/HCPCS: 12011; 51702; 70450; 71045; 71260; 72125; 74177; 80048; 80076; 81001; 82962; 84703; 85025; 85610; 85730; 90715; 93005; 96365; 96375; 99285; Q9967; A4216